=== PATIENT | female | born 1955 ===

== ENCOUNTER 2018-01-21 07:39 | Emergency (ER) | payer OTHER ==
[~2018-01-21] VITALS: Ht 152.4 cm; Wt 68.0 kg
[2018-01-21] MEDS ORDERED: METFORMIN HCL500 M2 PO (08:05)
[2018-01-21] MEDS ORDERED: LISINOPRIL5 MG PO (08:06)
== END 2018-01-21 11:55 | disposition home or self-care (01) ==
LOC: ER 07:39
DX: K59.09 Other constipation (principal); R10.32 Left lower quadrant pain

== ENCOUNTER 2019-11-24 04:39 | Inpatient (IN) | payer OTHER ==
[~2019-11-24] VITALS: Ht 142.2 cm; Wt 54.4 kg
[~2019-11-24 04:39] MED LIST: LISINOPRIL5 MG PO; METFORMIN HCL500 M2 PO
[2019-12-10] MEDS ORDERED: CLOPIDOGREL BIS75 MG PO (13:41)
[2019-12-10] MEDS ORDERED: LIPITOR20 MG PO (13:42)
[2019-12-10] MEDS ORDERED: LISINOPRIL40 MG PO (13:43)
[2019-12-10] MEDS ORDERED: METOPROLOL TART50 MG PO (13:44)
[2019-12-10] MEDS ORDERED: SPIRONOLACTONE25 MG PO (13:44)
[2019-12-10] MEDS ORDERED: ST. JOSEPH ASPI81 M2 PO (13:44)
[2019-12-10] MEDS ORDERED: BENZONATATE100 MG PO (13:45)
[2019-12-10] MEDS ORDERED: FUROSEMIDE20 MG PO (13:45)
[2019-12-10] MEDS ORDERED: PROTEINEX-18 LI30 ML PO (13:46)
[2019-12-10] MEDS ORDERED: METFORMIN HCL500 M2 PO (13:46)
== END 2019-12-10 14:58 | disposition home or self-care (01) | DRG 207 ==
LOC: ER 04:39 → ICU-2 14:54 → ICU 14:54 → MEDI 12-09 21:04
PROVIDERS: ADMIT Internal Medicine; ATTEND Internal Medicine
PROC: 8E0ZXY6 Isolation (ICD-10-PCS; 2019-11-24)
PROC: BB24ZZZ Computerized Tomography (CT Scan) of Bilateral Lungs (ICD-10-PCS; 2019-11-24)
PROC: 4A033R1 Measurement of Arterial Saturation, Peripheral, Percutaneous Approach (ICD-10-PCS; 2019-11-24)
PROC: 3E0F7GC Introduction of Other Therapeutic Substance into Respiratory Tract, Via Natural or Artificial Opening (ICD-10-PCS; 2019-11-24)
PROC: 5A1955Z Respiratory Ventilation, Greater than 96 Consecutive Hours (ICD-10-PCS; principal; 2019-11-25)
PROC: 0BH17EZ Insertion of Endotracheal Airway into Trachea, Via Natural or Artificial Opening (ICD-10-PCS; 2019-11-25)
PROC: B246ZZZ Ultrasonography of Right and Left Heart (ICD-10-PCS; 2019-11-25)
PROC: 0DH67UZ Insertion of Feeding Device into Stomach, Via Natural or Artificial Opening (ICD-10-PCS; 2019-11-25)
PROC: 3E0G76Z Introduction of Nutritional Substance into Upper GI, Via Natural or Artificial Opening (ICD-10-PCS; 2019-11-25)
PROC: 05HB33Z Insertion of Infusion Device into Right Basilic Vein, Percutaneous Approach (ICD-10-PCS; 2019-11-26)
PROC: 4A12X4Z Monitoring of Cardiac Electrical Activity, External Approach (ICD-10-PCS; 2019-12-10)
DX: J96.01 Acute respiratory failure with hypoxia (principal); B37.1 Pulmonary candidiasis; I21.4 Non-ST elevation (NSTEMI) myocardial infarction; R65.21 Severe sepsis with septic shock; J91.8 Pleural effusion in other conditions classified elsewhere; I50.40 Unspecified combined systolic (congestive) and diastolic (congestive) heart failure; Z20.828 Contact with and (suspected) exposure to other viral communicable diseases; I11.0 Hypertensive heart disease with heart failure; Z74.01 Bed confinement status

== ENCOUNTER 2020-10-25 14:34 | Inpatient (IN) | payer OTHER ==
[~2020-10-25] VITALS: Ht 162.6 cm; Wt 54.4 kg
[~2020-10-25 14:34] MED LIST changes: +BENZONATATE100 MG PO; +CLOPIDOGREL BIS75 MG PO; +FUROSEMIDE20 MG PO; +LIPITOR20 MG PO; +LISINOPRIL40 MG PO; +METOPROLOL TART50 MG PO; +PROTEINEX-18 LI30 ML PO; +SPIRONOLACTONE25 MG PO; +ST. JOSEPH ASPI81 M2 PO
== END 2020-10-28 15:24 | disposition home or self-care (01) | DRG 812 ==
LOC: ER 14:34 → MEDI 19:59 → MEDJ 19:59
PROVIDERS: ADMIT Internal Medicine; ATTEND Internal Medicine
PROC: 30233N1 Transfusion of Nonautologous Red Blood Cells into Peripheral Vein, Percutaneous Approach (ICD-10-PCS; principal; 2020-10-26)
PROC: 0DB98ZX Excision of Duodenum, Via Natural or Artificial Opening Endoscopic, Diagnostic (ICD-10-PCS; 2020-10-27)
PROC: 0DB78ZX Excision of Stomach, Pylorus, Via Natural or Artificial Opening Endoscopic, Diagnostic (ICD-10-PCS; 2020-10-27)
DX: D64.9 Anemia, unspecified (principal); I50.22 Chronic systolic (congestive) heart failure; Z20.822 Contact with and (suspected) exposure to COVID-19; I11.0 Hypertensive heart disease with heart failure; I25.10 Atherosclerotic heart disease of native coronary artery without angina pectoris

== ENCOUNTER 2021-03-30 12:36 | Inpatient (IN) | payer OTHER ==
[~2021-03-30] VITALS: Ht 152.4 cm; Wt 53.5 kg
== END 2021-04-03 09:52 | disposition home or self-care (01) | DRG 811 ==
LOC: ER 12:36 → MEDI 22:12
PROVIDERS: ADMIT Internal Medicine; ATTEND Internal Medicine
PROC: 30233N1 Transfusion of Nonautologous Red Blood Cells into Peripheral Vein, Percutaneous Approach (ICD-10-PCS; principal; 2021-03-31)
DX: D64.9 Anemia, unspecified (principal); I50.31 Acute diastolic (congestive) heart failure; E11.9 Type 2 diabetes mellitus without complications; I11.0 Hypertensive heart disease with heart failure; I25.10 Atherosclerotic heart disease of native coronary artery without angina pectoris; Z79.4 Long term (current) use of insulin; Z20.822 Contact with and (suspected) exposure to COVID-19